=== PATIENT | male | born 1995 | race Caucasian/White ===

== ENCOUNTER 2019-05-29 14:57 | Outpatient (CLI) | payer OTHER, SELFPAY ==
[2019-05-29 15:34] LABS: Abs Immature Grans 0.01 k/cumm (0.0-0.09); Absolute Basophil Count 0.03 k/cumm (0.0-0.2); Absolute Eosinophil Count 0.19 k/cumm (0.0-0.7); Absolute Monocyte Count 0.71 k/cumm (0.11-0.7); Absolute Neutrophil Count 3.82 k/cumm (1.2-6.7); Basophils % 0.5; Eosinophils % 2.9; HCT 46.8 % (40.0-50.0); HGB 16.3 g/dL (13.5-17.5); Immature Grans % 0.2; Lymphocytes % 27.4; Mean Corp. HGB Concentration 34.8 g/dL (32.0-36.0); Mean Corpuscular Hemoglobin 29.3 pg (27.0-33.0); Mean Corpuscular Volume 84.2 fL (80-95); Mean Platelet Volume 10.8 fL (8.0-11.0); Monocytes % 10.8; Neutrophils % 58.2; Platelet Count 213 x1000/uL (130-400); RBC 5.56 m/cumm (4.50-6.00); RBC Distribution Width 12.8 % (11.8-14.1); White Blood Cell Count 6.56 k/cumm (4.4-10.8)
[2019-05-29 16:43] LABS: ALT 36 U/L (16-63); AST 15 U/L (15-37); Albumin 4.2 g/dL (3.4-5.0); Alkaline Phosphatase 77 U/L (46-116); BUN 7 mg/dL (7-18); Bilirubin, Total 0.4 mg/dL (0.2-1.0); CREATININE 0.99 mg/dL (0.70-1.30); Calcium 9.1 mg/dL (8.5-10.1); Chloride 103 mmol/L (98-107); Glucose 96 mg/dL (70-100); Potassium 3.7 mmol/L (3.5-5.1); Sodium 140 mmol/L (136-145); TSH (W/Ref FT4) 0.68 uIU/mL (0.36-3.74)
== END 2019-05-29 15:17 ==
PROVIDERS: Visit Provider Physician Assistant
DX: R19.7 Diarrhea, unspecified (principal); K92.2 Gastrointestinal hemorrhage, unspecified
CPT/HCPCS: 36415; 80053; 84443; 85025

== ENCOUNTER 2019-05-30 20:09 | Outpatient (REF) | payer OTHER, SELFPAY ==
[2019-06-03 08:18] LABS: Campylobacter PCR Negative (Negative); Salmonella PCR Negative (Negative); Shiga Toxin PCR Negative (Negative); Shigella/Enteroinvasive Ecoli Negative (Negative)
== END 2019-05-30 20:29 ==
LOC: LBN 20:09
PROVIDERS: Visit Provider Physician Assistant
DX: R19.7 Diarrhea, unspecified (principal); K92.2 Gastrointestinal hemorrhage, unspecified
CPT/HCPCS: 87505; 82272; 83630; 87324

== ENCOUNTER 2019-06-30 11:59 | Outpatient (CLI) | payer OTHER, SELFPAY ==
[2019-06-30 13:54] LABS: Abs Immature Grans 0.02 k/cumm (0.0-0.09); Absolute Basophil Count 0.02 k/cumm (0.0-0.2); Absolute Eosinophil Count 0.02 k/cumm (0.0-0.7); Absolute Lymphocyte Count 1.06 k/cumm (1.2-3.4); Absolute Neutrophil Count 8.47 k/cumm (1.2-6.7); Basophils % 0.2; Eosinophils % 0.2; HCT 41.3 % (40.0-50.0); HGB 14.7 g/dL (13.5-17.5); Immature Grans % 0.2; Lymphocytes % 9.8; Mean Corp. HGB Concentration 35.6 g/dL (32.0-36.0); Mean Corpuscular Hemoglobin 29.7 pg (27.0-33.0); Mean Corpuscular Volume 83.4 fL (80-95); Mean Platelet Volume 10.4 fL (8.0-11.0); Monocytes % 11.1; Neutrophils % 78.5; Platelet Count 183 x1000/uL (130-400); RBC 4.95 m/cumm (4.50-6.00); RBC Distribution Width 12.9 % (11.8-14.1); White Blood Cell Count 10.79 k/cumm (4.4-10.8)
--- NOTE | 2019-06-30 14:10 | DI.RAD_ITS ---
EXAM: XR CHEST 2V PA AND LATERAL INDICATION: FEVER, COUGH. COMPARISON: No exams were available for comparison TECHNIQUE: 2D digital imaging was performed. FINDINGS: Cardiac and mediastinal contours have a normal appearance. The lungs are well inflated and clear. N o infiltrate or effusion is seen. IMPRESSION: Negative chest x-ray.
== END 2019-06-30 12:19 ==
PROVIDERS: Visit Provider Physician Assistant
DX: R50.9 Fever, unspecified (principal); R05 Cough
CPT/HCPCS: 36415; 87631; 71046; 85025

== ENCOUNTER 2021-06-22 01:35 | Emergency (ER) | payer OTHER, SELFPAY ==
[2021-06-22 01:40] VITALS: BP 138/81; PULSE 80; RESP 16; TEMP 36.6; O2SAT 100
--- NOTE | 2021-06-22 01:57 | ED.GENADUL_ITS ---
Discharge Plan Disposition Patient Disposition: HOME Condition: Good Discharge Details Clinical Impression: Acute GI bleeding Primary Care Provider: Audrey,Local ED Provider: Gurpreet Rivers Home Meds and New Rx's Prescriptions: Continued loratadine-pseudoephedrine [Claritin-D 24 Hour] 10-240 mg Tablet Extended Release 24 Hr 1 tab PO RF: 0 Discharge Instructions Additional Instructions: At this time you have had a mild GI bleed. It did seem to stabilize currently. Your blood work tests are as follows Hemoglobin: 13.1 Hematocrit: 40.5 Platelets: 318 Your basic metabolic panel is all within normal limits. No significant elevation in your BUN or creatinine. At this time it is important to continue with a mild bland diet. Please call your colorectal surgeon in the morning and follow-up closely with him. Will call him as well in the morning and inform him of your results. If you notice any return or worsening of your symptoms, or any new symptoms such as vomiting, diarrhea, fever, chills, shortness of breath, chest pain, numbness, weakness, or fainting , please return immediately to the emergency department for reevaluation. Please follow up with your primary care provider as soon as possible for reassessment and reevaluation. As always, it was a pleasure participating in your medical care today. Discharge Data Discharge Date/Time-TO BE ENTERED AT DEPARTURE: 06/22/21 02:30 Medical Decision Making This is a 25-year-old male with a past medical history of Asperger's syndrome, asthma, ulcerative colitis, with J-pouch, colectomy and colostomy and then subsequent ostomy reversal 6 weeks [address] performed by Dr[address] Nico Hayes at [facility] in [place], who presents today for bloody diarrhea. Patient has not been on any immunosuppressive's, he is not on any blood thinners. He states that he is doing very well since his surgical reversal, however this even ing he had an episode of bloody diarrhea 5 hours ago. Since then he has had 2 subsequent episodes of bloody diarrhea, each with mild amount of blood in them. They are roughly 1.5 hours apart for each episode. It has been 2 hours since his last episode of bloody diarrhea. He denies any pain, nausea, or vomiting. He denies any discomfort with the passage of the bowel movements. 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 He denies any medication aside for taking his regular Claritin. No other complaints at this time. He did contact his surgeon Nico Hayes, who recommended that he come into the ER for a check for his hemoglobin level. No other complaints at this time. No other modifying factors. Physical exam is notably unremarkable, abdomen is nontender. Patient has no evidence of tachycardia or hypotension. Patient does state that the surgeon Nico Hayes specifically stated not to call him this evening, but did recommen d calling him in the morning repeat blood test result. As there is no evidence of a severe GI bleed at this time with no signs of hemodynamic instability, patient should for emergent transfusion. We will check the patient's hemoglobin level, monitor closely and reassess. As there is no abdominal tenderness whatsoever, and no pain whatsoever, I do not see an indication for emergent CT imaging at this time. 2:28 AM Laboratory work-up reveals no white count, no left shift or bandemia. Normal electrolytes, normal renal function, normal BUN. Patient's hemoglobin is 13.1, about one-point lower than his normal. With an unremarkable hemoglobin at 13.1 I see no indication for transfusion at this time. Platelets are normal. Patient still has not had any bloody diarrhea here. He continues to show no abdominal tenderness whatsoever on exam. At this time with stable vital signs, resolution of his bloody diarrhea, and a relatively unremarkable hemoglobin I do feel that he can be discharged home with close follow-up with his colorectal surgeon in the morning. I will personally call the colorectal surgeon as well however I will wait until the morning at his request but there is no evidence of emergent indication at this time. Discussed concerning red flags which the patient should immediately return. Suspect mild intestinal irritation and mild transient bleed secondary to dietary changes. I have extensively reviewed the treatment plan and discharge instructions with the patient. I have addressed all patient concerns at this time. The patient was made aware of what symptoms to monitor for that would warrant a return to the emergency department. Discussed the plan with the patient, they demonstrate verbal understanding and agreement with our assessment and plan at this time. The documentation in this chart was dictated using [employer] dictation software. Please excuse any dictation errors. Dr. Nico Hayes colorectal surgeon cell #: [phone] 7:09 AM I did speak with Dr. Nico Hayes this morning, and informed him of the results. He has no additional recommendations at this time. He will call the patient and the GI doctor and recommend follow-up with his GI doctor on an outpatient basis. HPI General Date/Time Provider Initiated Documentation: 06/22/21 01:49 . HPI Narrative: This is a 25-year-old male with a past medical history of Asperger's syndrome, asthma, ulcerative colitis, with J-pouch, colostomy and then subsequent ostomy reversal [address] Nico Hayes at [facility] in [place], who presents today for bloody diarrhea. Patient has not been on any immunosuppressive's, he is not on any blood thinners. He states that he is doing very well since his surgical reversal, however this evening he had an episode of bloody diarrhea 5 hours ago. Since then he has had 2 subsequent episodes of bloody diarrhea, each with mild amount of blood in them. They are roughly 1.5 hours apart for each episode. It has been 2 hours since his last episode of bloody diarrhea. He denies any pain, nausea, or vomiting. He denies any discomfort with the passage of the bowel movements. He does admit to being under a significant amount of stress for his current [employer] project. He denies any medication aside for taking his regular Claritin. No other complaints at this time. He did contact his surgeon Nico Hayes, who recommended that he come into the ER for a check for his hemoglobin level. No other complaints at this time. No other modifying factors. Related Data Home Medications Medication Instructions Recorded Confirmed loratadine-pseudoephedrine 1 tab PO 06/22/21 [Claritin-D 24 Hour] Allergies Allergy/AdvReac Type Severity Reaction Status Date / Time amoxicillin Allergy Skin Rash Unverified 06/22/21 01:44 clavulanic acid Allergy Skin Rash Unverified 06/22/21 01:44 [From Augmentin] morphine Allergy Hives Unverified 06/22/21 01:44 General Stated Complaint: GI Bleed ALFA: 3 Review of Systems All systems reviewed & are unremarkable except as noted in HPI and below PFSH Medical History Ulcerative colitis Social History (Reviewed 06/22/21 @ 02:04 by INGE Herman Smoking/Tobacco Use Status: Never Smoking risk assessment performed?: Yes Alcohol Intake: current Alcohol Intake frequency: holidays/special occasions only Substance use type: does not use Do you feel safe at home: Yes Do you feel safe in your relationship?: Yes Exam Narrative Exam Narrative: 1.Const: Well-nourished, Well-developed, appearing stated age 2.Eyes: PERRL, no conjunctival injection, and symmetrical lids. 3.ENT: Atraumatic external nose and ears. Moist MM. Neck: Symmetric, trachea midline, No thyromegaly. 4.CVS: +S1/S2, No murmurs or gallops. Peripheral pulses 2+ and equal in all extremities. Brisk capillary refill in all extremities. 5.RESP: Unlabored respiratory effort. Clear to auscultation bilaterally. No wheezes rales or rhonchi 6.GI: Soft, Nontender/Nondistended, No hepatosplenomegaly. No guarding or rebound. Postoperative ostomy site demonstrates no significant redness, fistula, or evidence of infection. No blood rectally currently. 7.MSK: Normocephalic/Atraumatic, Extremities w/o deformity or ttp No cyanosis or clubbing, Normal movement of all extremities 8.Skin: Warm, Dry. No rashes or lesions. 9.Neuro: desktop support engineer II-XII grossly intact. Sensation grossly intact, no focal neurologic deficits. 10.Psych: (AAO) x3. Appropriate mood and affect Course Vital Signs Vital signs: Vital Signs Temperature 36.6 C 06/22/21 01:40 Pulse 80 06/22/21 01:40 Respiratory Rate 16 06/22/21 01:40 Blood Pressure 138/81 06/22/21 01:40 Pulse Oximetry 100 06/22/21 01:40 Temperature 36.6 C 06/22/21 01:40 Temperature Source Skin 06/22/21 01:40 Pulse 80 06/22/21 01:40 Respiratory Rate 16 06/22/21 01:40 Respiratory Effort Non-Labored 06/22/21 01:45 Blood Pressure 138/81 06/22/21 01:40 Pulse Oximetry 100 06/22/21 01:40 Pain Level 0 06/22/21 01:40
[2021-06-22 02:08] LABS: Abs Immature Grans 0.02 10^3/uL (0.0-0.06); Absolute Basophil Count 0.06 10^3/uL (0.0-0.2); Absolute Eosinophil Count 0.38 10^3/uL (0.0-0.7); Absolute Lymphocyte Count 2.34 10^3/uL (1.2-3.4); Absolute Monocyte Count 0.66 10^3/uL (0.1-0.8); Absolute Neutrophil Count 5.68 10^3/uL (1.2-6.7); Basophils % 0.7; Eosinophils % 4.2; HCT 40.5 % (40.0-50.0); HGB 13.1 g/dL (13.5-17.5); Immature Grans % 0.2; Lymphocytes % 25.6; MCH 27.1 pg (27.0-33.0); MCHC 32.3 % (32.0-36.0); MCV 83.9 fL (80-95); MPV 10.4 fL (8.0-11.0); Monocytes % 7.2; Neutrophils % 62.1; Nucleated RBC 0 %; Platelet Count 318 10^3/uL (130-400); RBC 4.83 10^6/uL (4.36-5.78); RDW 13.2 % (11.8-14.1); RDW-SD 39.9 fL; WBC 9.14 10^3/uL (4.4-10.8)
[2021-06-22 02:17] LABS: Anion Gap 8.8 mmol/L (3-11); BUN 13 mg/dL (7-18); CO2 26.2 mmol/L (21.0-32.0); Calcium 8.5 mg/dL (8.5-10.1); Chloride 105 mmol/L (98-107); Glucose 106 mg/dL (74-106); Potassium 3.6 mmol/L (3.5-5.1); Sodium 140 mmol/L (136-145)
== END 2021-06-22 02:30 | disposition home or self-care (01) ==
PROVIDERS: Emergency Provider Student in an Organized Health Care Education/Training Program
DX: K92.2 Gastrointestinal hemorrhage, unspecified (principal)
CPT/HCPCS: 36415; 80048; 86900; 86901; 99283; 85025